=== PATIENT | female | born 1950 | race Caucasian/White ===

== ENCOUNTER 2019-12-18 10:59 | Outpatient (CLI) | payer MEDICARE, OTHER, SELFPAY ==
[2019-12-18 11:47] LABS: Basophils % 0.8 %; Eosinophils # 0.2 10^3/uL (0.0-0.8); Eosinophils % 3.8 %; Hematocrit 39.7 % (37.0-47.0); Hemoglobin 13.5 g/dL (11.5-15.3); Lymphocytes # 1.5 10^3/uL (0.8-4.8); Lymphocytes % 30.7 %; Mean Corpuscular Hemoglobin 30.1 pg (28.0-34.0); Mean Corpuscular Volume 88.6 fL (81-99); Mean Platelet Volume 9.3 fL (7.4-10.4); Monocytes # 0.3 10^3/uL (0.2-0.9); Monocytes % 5.4 %; Neutrophils # 2.9 10^3/uL (1.8-7.7); Neutrophils % 58.9 %; Nucleated Red Blood Cells % 0 %; Platelet Count 293 10^3/cmm (130-400); Red Blood Count 4.48 10^6/uL (4.1-5.3); Red Cell Distribution Width 13.6 % (12.1-15.1)
[2019-12-18 11:53] LABS: Add Urine Microscopic? YES; Bilirubin Urine Neg (NEGATIVE); Blood Urine Neg (Negative); Glucose Urine UA Norm (Normal); Ketones Urine Negative (Negative); Leukocyte Esterase Urine Trace (Negative); Nitrate Urine Negative (Negative); Protein Urine Neg (Negative); Urine Appearance Clear (CLEAR); Urine Color Yellow (Yellow); Urobilinogen Urine Norm (Negative)
[2019-12-18 12:02] LABS: Squamous Epithelial Cell Urine 0-4 (0-5); WBC Urine 0-4 /hpf (0-5)
[2019-12-18 12:02] LABS: Alanine Aminotransferase 24 U/L (0-33); Albumin Level 4.8 g/dL (3.5-5.2); Alkaline Phosphatase 55 IU/L (35-105); Anion Gap 15.6 (5-19); Aspartate Amino Transferase 20 U/L (0-32); Blood Urea Nitrogen 16 mg/dL (8-23); C Reactive Protein 2.6 mg/L (0.0-4.9); Calcium 10.6 mg/Dl (8.8-10.2); Carbon Dioxide 31 mmol/L (22-29); Chloride 98 mmol/L (98-107); Globulin 3.1 g/dL (1.3-4.6); Glomerular Filtration Rate 83.2 mL/min (90-130); Glucose 140 mg/dL (74-106); Potassium 3.6 mmol/L (3.5-5.1); Sodium 141 mmol/L (136-145); Total Bilirubin 0.5 mg/dL (0.15-1.2); Total Protein 7.9 g/dL (6.6-8.7)
[2019-12-18 12:03] LABS: Add Urine Culture? No; Bacteria Urine TRACE
[2019-12-18 12:47] LABS: Erythrocyte Sedimentation Rate 26 mm/hr (0-15)
== END 2019-12-18 11:00 | disposition home or self-care (01) ==
PROVIDERS: Family Provider Nurse Practitioner; PCP Nurse Practitioner; Visit Provider Pediatrics
DX: M06.9 Rheumatoid arthritis, unspecified (principal); E11.9 Type 2 diabetes mellitus without complications
CPT/HCPCS: 36415; 80053; 81003; 85025; 85651; 86140

== ENCOUNTER 2021-02-11 10:57 | Outpatient (CLI) | payer MEDICARE, OTHER, SELFPAY ==
[2021-02-11 11:46] LABS: Basophils # 0.1 10^3/uL (0.0-0.1); Basophils % 1.3 %; Eosinophils # 0.2 10^3/uL (0.0-0.8); Eosinophils % 5.9 %; Hematocrit 37.9 % (37.0-47.0); Hemoglobin 12.6 g/dL (11.5-15.3); Lymphocytes # 0.9 10^3/uL (0.8-4.8); Mean Corpuscular HGB Conc 33.2 g/dL (30.0-36.0); Mean Corpuscular Hemoglobin 30.9 pg (28.0-34.0); Mean Corpuscular Volume 92.9 fL (81-99); Mean Platelet Volume 9.4 fL (7.4-10.4); Monocytes # 0.3 10^3/uL (0.2-0.9); Monocytes % 8.2 %; Neutrophils # 2.36 10^3/uL (1.8-7.7); Neutrophils % 60.1 %; Nucleated Red Blood Cells % 0 %; Platelet Count 252 10^3/cmm (130-400); Red Blood Count 4.08 10^6/uL (4.1-5.3); Red Cell Distribution Width 13.3 % (12.1-15.1); White Blood Count 3.9 10^3/uL (4.0-10.0)
[2021-02-11 11:53] LABS: Urine Appearance Clear (CLEAR); Urine Color Yellow (Yellow); pH Urine 6 (5-7)
[2021-02-11 11:54] LABS: Add Urine Microscopic? YES; Bilirubin Urine Neg (Negative); Blood Urine Neg (Negative); Glucose Urine UA Norm (Normal); Ketones Urine Negative (Negative); Leukocyte Esterase Urine Trace (Negative); Nitrate Urine Negative (Negative); Protein Urine Neg (Negative); Specific Gravity, Urine 1.015 (1.005-1.030); Urobilinogen Urine Norm (Negative)
[2021-02-11 11:58] LABS: Bacteria Urine 1+ /hpf; RBC Urine 0-4 /hpf (0-2)
[2021-02-11 11:59] LABS: Add Urine Culture? No
[2021-02-11 12:08] LABS: Alanine Aminotransferase 13 U/L (0-33); Alkaline Phosphatase 57 IU/L (35-105); Anion Gap 12.5 (5-19); Aspartate Amino Transferase 14 U/L (0-32); Blood Urea Nitrogen 17 mg/dL (8-23); C Reactive Protein 4.7 mg/L (0.0-4.9); Calcium 9.5 mg/dL (8.5-10.5); Carbon Dioxide 31 mmol/L (22-29); Chloride 101 mmol/L (98-107); Globulin 2.8 g/dL (1.3-4.6); Glomerular Filtration Rate 122.3 mL/min (90-130); Glucose 150 mg/dL (65-115); Osmolality Calculated 296 mOsm/kg (285-295); Potassium 3.5 mmol/L (3.5-5.1); Sodium 141 mmol/L (136-145); Total Bilirubin 0.5 mg/dL (0.15-1.2); Total Protein 6.8 g/dL (6.6-8.7)
[2021-02-11 12:28] LABS: Erythrocyte Sedimentation Rate 42 mm/hr (0-15)
== END 2021-02-11 10:58 | disposition home or self-care (01) ==
PROVIDERS: PCP Pediatrics; Visit Provider Pediatrics
DX: M06.9 Rheumatoid arthritis, unspecified (principal); M85.89 Other specified disorders of bone density and structure, multiple sites
CPT/HCPCS: 80053; 81001; 85025; 85651; 86140

== ENCOUNTER 2021-12-23 11:03 | Outpatient (CLI) | payer MEDICARE, OTHER, SELFPAY ==
[2021-12-23 11:48] LABS: Basophils # 0.1 10^3/uL (0.0-0.1); Eosinophils # 0.2 10^3/uL (0.0-0.8); Eosinophils % 3.9 %; Hematocrit 40.6 % (37.0-47.0); Hemoglobin 13.6 g/dL (11.5-15.3); Lymphocytes # 1.3 10^3/uL (0.8-4.8); Mean Corpuscular HGB Conc 33.5 g/dL (30.0-36.0); Mean Corpuscular Hemoglobin 31.5 pg (28.0-34.0); Mean Platelet Volume 9.4 fL (7.4-10.4); Monocytes # 0.4 10^3/uL (0.2-0.9); Monocytes % 7.9 %; Neutrophils # 2.95 10^3/uL (1.8-7.7); Nucleated Red Blood Cells % 0 %; Platelet Count 250 10^3/cmm (130-400); Red Blood Count 4.32 10^6/uL (4.1-5.3); Red Cell Distribution Width 13.3 % (12.1-15.1); White Blood Count 4.9 10^3/uL (4.0-10.0)
[2021-12-23 12:06] LABS: Add Urine Microscopic? YES; Bacteria Urine TRACE /hpf; Bilirubin Urine Neg (Negative); Blood Urine Neg (Negative); Glucose Urine UA Norm (Normal); Ketones Urine Negative (Negative); Leukocyte Esterase Urine 2+ (Negative); Nitrate Urine Negative (Negative); Protein Urine Neg (Negative); Squamous Epithelial Cell Urine 0-4 /hpf (0-5); Urine Appearance Hazy (CLEAR); Urine Color Yellow (Yellow); Urobilinogen Urine Norm (Negative); WBC Urine 0-4 /hpf (0-5); pH Urine 5 (5-7)
[2021-12-23 12:07] LABS: Add Urine Culture? No
[2021-12-23 12:09] LABS: Erythrocyte Sedimentation Rate 14 mm/hr (0-15)
[2021-12-23 12:22] LABS: Alanine Aminotransferase 15 U/L (0-33); Albumin Level 4.6 g/dL (3.5-5.2); Alkaline Phosphatase 67 IU/L (35-105); Anion Gap 13.3 (5-19); Aspartate Amino Transferase 15 U/L (0-32); Blood Urea Nitrogen 17 mg/dL (8-23); C Reactive Protein 0.7 mg/L (0.0-4.9); Carbon Dioxide 29 mmol/L (22-29); Chloride 101 mmol/L (98-107); Globulin 2.3 g/dL (1.3-4.6); Glomerular Filtration Rate 98.8 mL/min (90-130); Glucose 64 mg/dL (65-115); Osmolality Calculated 290 mOsm/kg (285-295); Potassium 3.3 mmol/L (3.5-5.1); Sodium 140 mmol/L (136-145); Total Bilirubin 0.4 mg/dL (0.15-1.2); Total Protein 6.9 g/dL (6.6-8.7)
[2021-12-26 11:28] LABS: Vit D 1,25 (Oh)2, Total 40 pg/mL (18-72); Vit D2 1,25 (Oh)2 <8 pg/mL; Vit D3 1,25 (Oh)2 40 pg/mL
== END 2021-12-23 11:04 | disposition home or self-care (01) ==
LOC: LAB 11:10
PROVIDERS: PCP Nurse Practitioner; Visit Provider Pediatrics
DX: M05.89 Other rheumatoid arthritis with rheumatoid factor of multiple sites (principal)
CPT/HCPCS: 36415; 80053; 81001; 82652; 85025; 85651; 86140

== ENCOUNTER 2022-03-25 12:11 | Outpatient (CLI) | payer MEDICARE, OTHER, SELFPAY ==
[2022-03-25 12:44] LABS: Basophils % 0.6 %; Eosinophils # 0.1 10^3/uL (0.0-0.8); Eosinophils % 2.1 %; Hematocrit 40.1 % (37.0-47.0); Hemoglobin 13.2 g/dL (11.5-15.3); Lymphocytes # 1.1 10^3/uL (0.8-4.8); Lymphocytes % 22.7 %; Mean Corpuscular HGB Conc 32.9 g/dL (30.0-36.0); Mean Corpuscular Hemoglobin 31.1 pg (28.0-34.0); Mean Corpuscular Volume 94.6 fl (81-99); Mean Platelet Volume 9.4 fL (7.4-10.4); Monocytes # 0.3 10^3/uL (0.2-0.9); Monocytes % 6.6 %; Neutrophils # 3.29 10^3/uL (1.8-7.7); Neutrophils % 67.8 %; Nucleated Red Blood Cells % 0 %; Platelet Count 238 10^3/cmm (130-400); Red Blood Count 4.24 10^6/uL (4.1-5.3); Red Cell Distribution Width 14.1 % (12.1-15.1); White Blood Count 4.9 10^3/uL (4.0-10.0)
[2022-03-25 12:58] LABS: Erythrocyte Sedimentation Rate 15 mm/hr (0-15)
[2022-03-25 13:14] LABS: Alanine Aminotransferase 14 U/L (0-33); Albumin Level 4.4 g/dL (3.5-5.2); Alkaline Phosphatase 59 IU/L (35-105); Anion Gap 13.5 (5-19); Aspartate Amino Transferase 15 U/L (0-32); Blood Urea Nitrogen 16 mg/dL (8-23); Calcium 8.8 mg/dL (8.5-10.5); Carbon Dioxide 27 mmol/L (22-29); Chloride 103 mmol/L (98-107); Globulin 2.4 g/dL (1.3-4.6); Glomerular Filtration Rate 98.8 mL/min (90-130); Glucose 98 mg/dL (65-115); Osmolality Calculated 291 mOsm/kg (285-295); Potassium 3.5 mmol/L (3.5-5.1); Sodium 140 mmol/L (136-145); Total Bilirubin 0.5 mg/dL (0.15-1.2); Total Protein 6.8 g/dL (6.6-8.7)
[2022-03-25 13:25] LABS: Bilirubin Urine Neg (Negative); Blood Urine Neg (Negative); Glucose Urine UA Norm (Normal); Ketones Urine Negative (Negative); Leukocyte Esterase Urine 2+ (Negative); Nitrate Urine Negative (Negative); Protein Urine Neg (Negative); Urine Appearance Cloudy (CLEAR); Urine Color Yellow (Yellow); Urobilinogen Urine Norm (Negative); pH Urine 5 (5-7)
[2022-03-25 13:31] LABS: Add Urine Culture? Yes; RBC Urine 0-4 /hpf (0-2); Squamous Epithelial Cell Urine 0-4 /hpf (0-5)
[2022-03-25 14:04] LABS: Add Urine Microscopic? YES; Bacteria Urine 1+ /hpf
[2022-03-25 14:25] LABS: 25 Hydroxy Vitamin D 39 ng/mL (30-100)
== END 2022-03-25 12:12 | disposition home or self-care (01) ==
LOC: LAB 12:13
PROVIDERS: PCP Nurse Practitioner; Visit Provider Pediatrics
DX: M05.89 Other rheumatoid arthritis with rheumatoid factor of multiple sites (principal); R00.1 Bradycardia, unspecified; I10 Essential (primary) hypertension
CPT/HCPCS: 36415; 80053; 81001; 82306; 85025; 85651; 86140; 99213

== ENCOUNTER 2023-11-04 11:55 | Outpatient (CLI) | payer MEDICARE, OTHER, SELFPAY ==
[2023-11-04 13:05] LABS: Basophils % 1.2 %; Eosinophils # 0.1 10^3/uL (0.0-0.8); Eosinophils % 2.4 %; Lymphocytes % 30.1 %; Mean Corpuscular HGB Conc 33.5 g/dL (30-55); Mean Corpuscular Hemoglobin 31.2 pg (27-33); Mean Corpuscular Volume 93.2 fl (85-98); Mean Platelet Volume 9.2 fL (7.4-10.4); Monocytes # 0.2 10^3/uL (0.2-0.9); Monocytes % 7.1 %; Neutrophils # 1.99 10^3/uL (1.8-7.7); Neutrophils % 59.2 %; Nucleated Red Blood Cells % 0 %; Platelet Count 233 10^3/cmm (157-399); Red Blood Count 4.29 10^6/uL (3.85-5.65); Red Cell Distribution Width 14.6 % (12.1-15.1); White Blood Count 3.36 10^3/uL (3.29-11.43)
[2023-11-04 13:28] LABS: Erythrocyte Sedimentation Rate 13 mm/hr (0-15)
[2023-11-04 13:31] LABS: Alanine Aminotransferase < 5 U/L (0-33); Albumin Level 4.4 g/dL (3.5-5.2); Alkaline Phosphatase 64 U/L (35-105); Anion Gap 14.9 (5-19); Aspartate Amino Transferase 22 U/L (0-32); Blood Urea Nitrogen 15 mg/dL (8-23); Calcium 9.7 mg/dL (8.5-10.5); Carbon Dioxide 27 mmol/L (22-29); Chloride 103 mmol/L (98-107); Globulin 2.9 g/dL (1.3-4.6); Glucose 75 mg/dL (65-115); Osmolality Calculated 292 mOsm/kg (285-295); Potassium 3.9 mmol/L (3.5-5.1); Sodium 141 mmol/L (136-145); Total Bilirubin 0.7 mg/dL (0.15-1.2); Total Protein 7.3 g/dL (6.6-8.7)
[2023-11-04 13:33] LABS: Add Urine Microscopic? YES; Bacteria Urine TRACE /hpf; Bilirubin Urine Neg (Negative); Blood Urine Neg (Negative); Glucose Urine UA Norm (Normal); Ketones Urine 1+ (Negative); Leukocyte Esterase Urine Trace (Negative); Mucus Urine TRACE /hpf; Nitrate Urine Negative (Negative); Protein Urine Neg (Negative); RBC Urine 0-4 /hpf (0-2); Specific Gravity, Urine 1.015 (1.005-1.030); Squamous Epithelial Cell Urine 0-4 /hpf (0-5); Urine Appearance Clear (CLEAR); Urine Color Yellow (Yellow); Urobilinogen Urine Neg (Negative); pH Urine 6 (5-7)
[2023-11-04 13:34] LABS: Add Urine Culture? No
== END 2023-11-04 11:56 | disposition home or self-care (01) ==
LOC: LAB 11:58
PROVIDERS: PCP Nurse Practitioner; Visit Provider Pediatrics
DX: M05.89 Other rheumatoid arthritis with rheumatoid factor of multiple sites (principal)
CPT/HCPCS: 36415; 80053; 81001; 85025; 85651; 86140

== ENCOUNTER 2024-01-11 11:36 | Outpatient (CLI) | payer MEDICARE, OTHER, SELFPAY ==
[2024-01-11 13:02] LABS: 25 Hydroxy Vitamin D 35 ng/mL (30-100)
== END 2024-01-11 11:37 | disposition home or self-care (01) ==
LOC: LAB 11:41
PROVIDERS: PCP Nurse Practitioner; Visit Provider Internal Medicine
DX: Z79.899 Other long term (current) drug therapy (principal); M05.9 Rheumatoid arthritis with rheumatoid factor, unspecified
CPT/HCPCS: 36415; 82306

== ENCOUNTER 2024-07-01 09:49 | Emergency (ER) | payer MEDICARE, OTHER, SELFPAY ==
[2024-07-01 09:57] VITALS: BP 148/76; PULSE 63; RESP 20; TEMP 36.7; O2SAT 100; BMI 22.1
--- NOTE | 2024-07-01 11:06 | ED_ITS ---
HPI - Skin/Abscess/Foreign Bdy General: Chief complaint: Skin/Abscess/Foreign Body Stated complaint: wasp insect, left arm swelling Time Seen by Provider: 07/01/24 10:05 Source: patient and family Mode of arrival: ambulatory Limitations: no limitations History of Present Illness: And applied a pulses to the area. She states that the next morning she had some mild swelling and itching and redness of her hand. She was seen at a outpatient clinic and prescribed prednisone which she has taken 3 doses of. This morning upon awakening she has had increasing migration of the redness and swelling of her left hand to the distal forearm. She had no associated fevers, wheezing, shortness of breath but states her hand itches. She has never been stung by any arthropod's in the past. She does have a history of rheumatoid arthritis and takes methotrexate. She also has diabetes. He denies any decreased function of the left hand. She denies any significant pain etc. MD complaint: insect bite/sting Tetanus up to date: unsure Location: L hand Associated symptoms: Deny chills, fever(s), nausea or vomiting Review of Systems Const: Denies: fever(s) or chills Eyes: Denies: change in vision ENMT: Denies: throat pain, odynophagia, nasal congestion or nasal obstruction Card: Denies: palpitations, irregular heart rhythm or lightheadedness Resp: Denies: wheezing or stridor GI: Denies: abdominal pain, nausea, vomiting or diarrhea Musc: Reports: extremity swelling and joint swelling (Chronic because of her rheumatoid arthritis) Skin/Breast: Reports: rash, pruritus and erythema Neuro: Denies: headache(s), numbness in extremities or weakness in extremities PFSH ED PFSH: Medical History Palpitation Family History Father Myocardial infarction Grandmother Myocardial infarction Mother Cancer Brother Bipolar disorder Social History Smoking and tobacco/nicotine status: never used tobacco/nicotine Physical Exam Narrative: EXAM NARRATIVE: She is alert and comfortable and appears to be in no acute distress makes good eye contact. Const: COMMON NORMALS: no acute distress, average body habitus and patient oriented x3 GENERAL APPEARANCE: cooperative and comfortable HENMT: COMMON NORMALS: normocephalic, Normal external nose present, Normal nasal mucous membranes and turbinates present, moist oral mucous membranes and oropharynx normal HEAD & SCALP: normocephalic FACE & SINUS: normal facial exam NOSE: Normal external nose present and Normal nasal mucous membranes and turbinates present Eye: COMMON NORMALS: Equal, round and reactive pupils present, EOMs intact bilaterally and conjunctivae normal CONJUNCTIVA: Yes conjunctivae normal PUPIL: Yes Equal, round and reactive pupils present Neck/C-Spine: COMMON NORMALS: full ROM, no lymphadenopathy, no JVD and Thyroid normal THYROID: Thyroid normal Resp: COMMON NORMALS: normal respiratory effort, No retractions, No use of accessory muscles and clear to auscultation bilaterally AUSCULTATION: clear to auscultation bilaterally Cardio: COMMON NORMALS: no JVD, regular rate, regular rhythm, No murmurs present (Cardio) and Peripheral pulses 2+ throughout RATE: regular rate RHYTHM: regular rhythm PERIPHERAL PULSES: Peripheral pulses 2+ throughout Back/Pelvis: COMMON NORMALS: thoracic and lumbar spine normal to inspection, no thoracic nor lumbar tenderness, thoraco-lumbar ROM normal and straight leg raise negative bilaterally Extremity: COMMON NORMALS: full ROM and capillary refill normal NARRATIVE EXTREMITY EXAM: Left upper extremity is remarkable for swelling of the dorsum of the left hand with associated erythema of the skin. The erythema extends up to the distal one third of the forearm. There is no satellite lesions there is no excoriation. There is no proximal lymphangitis or lymphadenopathy. She has normal range of motion at the left shoulder elbow wrist and all fingers. There is a wedding ring on the fourth finger of the left hand with some swelling proximal to the wedding ring. She has good capillary refill. Neuro: COMMON NORMALS: patient oriented x3, moves all extremities, no focal motor deficits and no sensory deficits noted Psych: COMMON NORMALS: mental status grossly normal Skin: COMMON NORMALS: no wounds NARRATIVE SKIN EXAM: Confluent erythematous to skin as noted on the dorsum of the left hand extending in a irregular pattern of the left distal forearm. No pustules, papules etc. Course Reevaluation(s): Reevaluation #1: Using water-based lubricant her wedding ring was removed without difficulty. We discussed expected course plan of treatment and return precautions. Time: 11:12 Vital Signs: Vital signs: Vital Signs Temperature 98.0 F 07/01/24 09:57 Pulse Rate 63 07/01/24 09:57 Respiratory Rate 20 H 07/01/24 09:57 Blood Pressure 148/76 07/01/24 09:57 Pulse Oximetry 100 07/01/24 09:57 MDM - Skin/Abscess/Foreign Bdy Medicial Decision Making Patient with a history of a recent arthropod sting from a wasp presents because of increased swelling redness and itching without any associated systemic symptoms. Clinical exam suggested likely histamine release but because of her immunocompromise state certainly early cellulitis or development of cellulitis could not be ruled out. No evidence of vascular compromise or other concerns would suggest compartment syndrome etc. Her wedding ring was removed. We will add an antihistamine to her prednisone that she received from an outpatient clinic as she has not been taking an antihistamine, update her tetanus status, provide oral antibiotics due to her immunocompromise state. Return precautions were also discussed in detail. No radiology studies performed this visit Discharge Plan Discharge Patient Disposition: Home Clinical Impression: Allergic reaction to insect sting, Cellulitis Condition: Stable Prescriptions: New cephalexin 500 mg capsule 500 mg PO TID 5 Days Qty: 15 0RF No Action fluticasone propionate [Flonase Allergy Relief] 50 mcg/actuation spray,suspension 1 spray INTRANASAL DAILY folic acid 1 mg tablet 1 mg PO DAILY losartan-hydrochlorothiazide 100-25 mg tablet 1 tab PO DAILY methotrexate sodium 2.5 mg tablet 20 mg PO .Weekly multivitamin Tablet 1 tab PO DAILY potassium chloride 20 mEq tablet extended release 20 meq PO DAILY simvastatin 10 mg tablet 10 mg PO DAILY ascorbic acid (vitamin C) 500 mg capsule PO magnesium chloride 64 mg tablet,delayed release (DR/EC) 64 mg PO BID metformin 1,000 mg tablet 500 mg PO DAILY omeprazole 20 mg capsule,delayed release(DR/EC) 20 mg PO .every other day sertraline 25 mg tablet 25 mg PO DAILY Discharge Orders: Discharge ED (Routine); Ordered 07/01/24 Ordered By: Hilario Brand Discharge Diet: Usual diet Discharge Activity: Increase activity as tolerated Patient Instructions: Opioid Safety, Pain Management Activity Restrictions/Additional Instructions: As we discussed while you are in the emergency department we think that most of your redness and swelling is likely due to reaction from the bite with histamine release. We recommend getting [id number] Pepcid AC which are 10 mg tablets and take 2 of those tablets 3 times a day for the next 5 days. Continue the prednisone previously prescribed. Because of your risk for infection we have provided an antibiotic that she should take for the next 5 days. We expect no significant improvement in the next 24 hours but after that we should expect some improvement daily. If you do not see improvement within 48 hours or you have significant worsening with redness swelling inability move your arm fevers chills or any other symptoms return to the emergency department immediately for reevaluation. 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
[2024-07-01] MEDS: cephALEXin 500 mg Capsule PO (11:14)
[2024-07-01] MEDS: famotidine 20 mg Tablet 40 MG PO (11:14)
[2024-07-01] MEDS: tetanus-dipt-pertussis 0.5 mL SDV IM (11:16)
== END 2024-07-01 12:32 | disposition home or self-care (01) ==
PROVIDERS: Emergency Provider Emergency Medicine
DX: T63.481A Toxic effect of venom of other arthropod, accidental (unintentional), initial encounter (principal); L03.114 Cellulitis of left upper limb; Z79.84 Long term (current) use of oral hypoglycemic drugs; Z23 Encounter for immunization
CPT/HCPCS: 90471; 90715; 99283

== ENCOUNTER 2024-08-24 12:16 | Outpatient (CLI) | payer MEDICARE, OTHER, SELFPAY ==
[2024-08-24 13:01] LABS: Basophils % 0.9 %; Eosinophils # 0.2 10^3/uL (0.0-0.8); Eosinophils % 4.4 %; Hematocrit 36.5 % (36-47); Lymphocytes # 1.2 10^3/uL (0.8-4.8); Lymphocytes % 27.3 %; Mean Corpuscular HGB Conc 33.4 g/dL (30-55); Mean Corpuscular Volume 92.9 fl (85-98); Mean Platelet Volume 9.2 fL (7.4-10.4); Monocytes # 0.3 10^3/uL (0.2-0.9); Monocytes % 6.4 %; Neutrophils # 2.76 10^3/uL (1.8-7.7); Neutrophils % 60.8 %; Nucleated Red Blood Cells % 0 %; Platelet Count 253 10^3/cmm (157-399); Red Blood Count 3.93 10^6/uL (3.85-5.65); Red Cell Distribution Width 14.6 % (12.1-15.1); White Blood Count 4.54 10^3/uL (3.29-11.43)
[2024-08-24 13:16] LABS: Erythrocyte Sedimentation Rate 14 mm/hr (0-15)
[2024-08-24 13:18] LABS: Bilirubin Urine Negative (Negative); Blood Urine Negative (Negative); Glucose Urine UA Negative (Normal); Ketones Urine Negative (Negative); Leukocyte Esterase Urine 1+ (Negative); Nitrate Urine Negative (Negative); Protein Urine Negative (Negative); Specific Gravity, Urine 1.019 (1.005-1.030); Urine Appearance Clear (CLEAR); Urine Color Yellow (Yellow)
[2024-08-24 13:23] LABS: Add Urine Microscopic? YES; Bacteria Urine None Seen /hpf; Hyaline Casts Urine 0-4 /lpf; RBC Urine 0-2 /hpf (0-2); Squamous Epithelial Cell Urine 0-5 /hpf (0-5)
[2024-08-24 13:26] LABS: Alanine Aminotransferase 16 U/L (0-33); Albumin Level 4.1 g/dL (3.5-5.2); Alkaline Phosphatase 59 U/L (35-105); Aspartate Amino Transferase 22 U/L (0-32); Blood Urea Nitrogen 18 mg/dL (8-23); Calcium 9.3 mg/dL (8.5-10.5); Carbon Dioxide 29 mmol/L (22-29); Chloride 107 mmol/L (98-107); Globulin 2.6 g/dL (1.3-4.6); Glucose 99 mg/dL (65-115); Osmolality Calculated 300 mOsm/kg (285-295); Sodium 144 mmol/L (136-145); Total Bilirubin 0.6 mg/dL (0.15-1.2); Total Protein 6.7 g/dL (6.6-8.7)
[2024-08-24 13:42] LABS: Add Urine Culture? No
== END 2024-08-24 12:17 | disposition home or self-care (01) ==
LOC: LAB 12:18
PROVIDERS: Visit Provider Pediatrics
DX: M05.89 Other rheumatoid arthritis with rheumatoid factor of multiple sites (principal)
CPT/HCPCS: 36415; 80053; 81001; 85025; 85651; 86140

== ENCOUNTER 2025-03-09 10:32 | Outpatient (CLI) | payer MEDICARE, OTHER, SELFPAY ==
[2025-03-09 11:35] LABS: Basophils % 0.9 %; Eosinophils # 0.1 10^3/uL (0.0-0.8); Eosinophils % 2.1 %; Hematocrit 37.2 % (36-47); Lymphocytes # 1.3 10^3/uL (0.8-4.8); Lymphocytes % 39.6 %; Mean Corpuscular HGB Conc 34.7 g/dL (30-55); Mean Corpuscular Hemoglobin 32.4 pg (27-33); Mean Corpuscular Volume 93.5 fl (85-98); Mean Platelet Volume 9.3 fL (7.4-10.4); Monocytes # 0.2 10^3/uL (0.2-0.9); Monocytes % 6.7 %; Neutrophils # 1.65 10^3/uL (1.8-7.7); Neutrophils % 50.4 %; Nucleated Red Blood Cells % 0 %; Platelet Count 213 10^3/cmm (157-399); Red Blood Count 3.98 10^6/uL (3.85-5.65); Red Cell Distribution Width 13.6 % (12.1-15.1); White Blood Count 3.28 10^3/uL (3.29-11.43)
[2025-03-09 11:53] LABS: Erythrocyte Sedimentation Rate 2 mm/hr (0-15)
[2025-03-09 12:04] LABS: Alanine Aminotransferase < 5 U/L (0-33); Aspartate Amino Transferase 21 U/L (0-32)
== END 2025-03-09 10:33 | disposition home or self-care (01) ==
LOC: LAB 10:40
PROVIDERS: PCP Nurse Practitioner Family; Visit Provider Internal Medicine
DX: M05.79 Rheumatoid arthritis with rheumatoid factor of multiple sites without organ or systems involvement (principal)
CPT/HCPCS: 36415; 82565; 84450; 84460; 85025; 85651; 86140

== ENCOUNTER 2025-05-28 10:00 | Outpatient (CLI) | payer MEDICARE, OTHER, SELFPAY ==
--- NOTE | 2025-05-28 10:06 | MM_ITS ---
WS: [id number] BILATERAL 3D TOMOSYNTHESIS DIGITAL SCREENING MAMMOGRAPHY WITH CAD CLINICAL INFORMATION: SCREENING HISTORY: Screening mammogram. History of LEFT benign biopsy COMPARISON: None available TECHNIQUE: Bilateral CC and MLO views. FINDINGS: The breasts are composed of heterogeneous fibroglandular density tissue, which can limit the detection of small underlying mass lesions. No suspicious mass, asymmetry, calcifications, or architectural distortion. No evidence of malignancy. Vascular calcification. Incidental benign calcifications. Biopsy clip LEFT breast. Coarse clustered calcifications RIGHT breast. MM/MM [facility] tomosynthesis [id number] IMPRESSION: DENSITY: The breasts are heterogeneously dense, which may obscure small masses. BI-RADS: 2 - Benign FOLLOW UP: 1 Year Follow-up Recommend return to annual screening mammography.
[2025-05-28 10:58] LABS: Basophils # 0.1 10^3/uL (0.0-0.1); Basophils % 1.3 %; Eosinophils # 0.1 10^3/uL (0.0-0.8); Eosinophils % 3.2 %; Hematocrit 35.2 % (36-47); Lymphocytes # 0.9 10^3/uL (0.8-4.8); Lymphocytes % 23.3 %; Mean Corpuscular HGB Conc 35.2 g/dL (30-55); Mean Corpuscular Hemoglobin 33.7 pg (27-33); Mean Corpuscular Volume 95.7 fl (85-98); Mean Platelet Volume 9.2 fL (7.4-10.4); Monocytes # 0.3 10^3/uL (0.2-0.9); Monocytes % 7.8 %; Neutrophils % 64.1 %; Nucleated Red Blood Cells % 0 %; Platelet Count 221 10^3/cmm (157-399); Red Blood Count 3.68 10^6/uL (3.85-5.65); Red Cell Distribution Width 13.6 % (12.1-15.1); White Blood Count 3.74 10^3/uL (3.29-11.43)
[2025-05-28 11:06] LABS: Erythrocyte Sedimentation Rate 12 mm/hr (0-15)
[2025-05-28 11:24] LABS: Alanine Aminotransferase < 5 U/L (0-33); Aspartate Amino Transferase 18 U/L (0-32); C Reactive Protein 9.5 mg/L (0.0-4.9)
== END 2025-05-28 10:01 | disposition home or self-care (01) ==
PROVIDERS: PCP Nurse Practitioner Family; Visit Provider Nurse Practitioner Family
DX: Z12.31 Encounter for screening mammogram for malignant neoplasm of breast (principal); R92.333 Mammographic heterogeneous density, bilateral breasts; R92.1 Mammographic calcification found on diagnostic imaging of breast
CPT/HCPCS: 36415; 77063; 77067; 82565; 84450; 84460; 85025; 85651; 86140

== ENCOUNTER 2025-08-30 10:31 | Outpatient (CLI) | payer MEDICARE, OTHER, SELFPAY ==
[2025-08-30 12:02] LABS: Hematocrit 38.0 % (36-47); Hemoglobin 12.80 g/dL (11.27-16.99); Mean Corpuscular HGB Conc 33.7 g/dL (30-55); Mean Corpuscular Hemoglobin 31.4 pg (27-33); Mean Corpuscular Volume 93.4 fl (85-98); Nucleated Red Blood Cells % 0 %; Platelet Count 202 10^3/cmm (157-399); Red Blood Count 4.07 10^6/uL (3.85-5.65); White Blood Count 3.92 10^3/uL (3.29-11.43)
[2025-08-30 12:19] LABS: Alanine Aminotransferase < 5 U/L (0-33); Aspartate Amino Transferase 23 U/L (0-32)
== END 2025-08-30 10:32 | disposition home or self-care (01) ==
LOC: LAB 10:35
PROVIDERS: PCP Nurse Practitioner Family; Visit Provider Internal Medicine
DX: M05.79 Rheumatoid arthritis with rheumatoid factor of multiple sites without organ or systems involvement (principal)
CPT/HCPCS: 36415; 82565; 84450; 84460; 85025; 85651; 86140